=== PATIENT | male | born 1960 | race Caucasian/White ===

== ENCOUNTER 2023-09-27 13:34 | Outpatient (CLI) | payer MEDICARE, SELFPAY | END 2023-09-27 13:35 | disposition home or self-care (01) | PROVIDERS: Visit Provider Nurse Practitioner Family | DX: I10 Essential (primary) hypertension (principal); E55.9 Vitamin D deficiency, unspecified; R20.0 Anesthesia of skin; R20.2 Paresthesia of skin | CPT/HCPCS: 80053; 81001; 82306; 82607; 84443 ==

== ENCOUNTER 2023-09-28 13:53 | Emergency (ER) | payer MEDICARE, SELFPAY ==
[2023-09-28] VITALS (11 sets, daily range): BP systolic 166; BP diastolic 95; PULSE 56–75; RESP 18; O2SAT 96–100; BMI 21.5
--- NOTE | 2023-09-28 15:22 | CRLHL7_ITS ---
For Patients: As a result of the Century Cures Act, medical imaging exams and procedure reports are released immediately into your electronic medical record. You may view this report before your referring provider. If you have questions, please contact your health care provider. Indication: Diffuse numbness, prior traumatic brain injury Technique: Volumetric multidetector CT images of the head were obtained without the administration of low osmolar intravenous contrast. Comparison: None available Findings: There is no intra-axial or extra-axial fluid collection. There is no mass effect or midline shift. There is age-related cortical atrophy with mild sulcal widening and ex vacuo dilatation of the lateral ventricles. There are chronic small vessel disease changes in the subcortical and periventricular white matter without lost chavez-white differentiation. The orbits and their contents are grossly within normal limits. The bony calvarium is grossly intact. The paranasal sinuses are clear. The mastoid air cells are well aerated. Impression: Age-related and chronic small-vessel disease changes of the brain without acute intracranial abnormality. Please note that all CT scans at this facility use dose modulation, iterative reconstruction, and/or weight-based dosing when appropriate to reduce radiation dose to as low as reasonably achievable. Dictated by Aidan Joseph MD @ 09/28/2023 3:50:42 PM (Electronically Signed)
--- NOTE | 2023-09-28 15:49 | ED.GENADULT ---
HPI - General Adult General Date Seen: 09/28/23 Chief complaint: Neuro Symptoms/Altered Deficit Stated complaint: legs and arms tingly, headache, hypertension Time Seen by Provider: 09/28/23 14:26 Source: patient Mode of arrival: ambulatory Limitations: no limitations History of Present Illness HPI narrative: Patient is a 62-year-old male presenting to the emergency department for multiple complaints. The past few months he will have random episodes where he developed a headache and his extremities along with the side of his chest with developed pins and needle sensation. He was living in [facility] were he was seen for this last week but was recently moved back up to [place] with his son. He was seen yesterday to set up primary care at that time he was noted to be very hypertensive and was started on a blood pressure medication. Blood pressure is better today. He states he was having the symptoms yesterday 2 Na improved and then they started again at 02:00 today. He states since he has been in the emergency department the symptoms have been improving. States he feels much better right now. 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 He also punctured his lung at that time but did have a normal chest x-ray seen last week at his Emergency visit. He does have his COPD currently. Does not feel any more short of breath than normal. So also concerned about areas on his leg that he says he has been dealing with this for several years. Previously he was told these wounds for MRSA and were likely from peripheral vascular disease but he never had further intervention as that is when the COVID pandemic started and he did not see another doctor up until last year. denies fevers, chills, abdominal pain, diarrhea, constipation, dysuria, weakness, vision changes Related Data Home Medications ?Medication ?Instructions ?Recorded ?Confirmed hydroxyzine HCl 10 mg tablet 10 mg PO QHS 09/27/23 09/27/23 Previous Rx's ?Medication ?Instructions ?Recorded losartan 50 mg tablet (Cozaar) 50 mg PO QDAY #90 tabs 09/27/23 cholecalciferol (vitamin D3) 1,250 1,250 mcg PO QWEEK #12 caps 09/28/23 mcg (50,000 unit) capsule Allergies Allergy/AdvReac Type Severity Reaction Status Date / Time No Known Drug Allergies Allergy Verified 09/27/23 12:47 Review of Systems Status of ROS: Reports: 10 or more systems reviewed and unremarkable except as noted in History and below [facility] Surgical History (Updated 09/28/23 @ 11:01 by Trixie Lyle APRN, [employer] IN[employer]ER) History of colonoscopy ?Z98.890 - Other specified postprocedural states (ICD-10) Social History Narrative: The patient is . Disabled. One child. No formal exercise. Smoking 1 cigarette per day. No alcohol. No current drug use. Smoking Status: Current some day smoker How often do you have a drink containing alcohol: never AUDIT-C Alcohol total score: 0 Exam Narrative: Exam Narrative: Const: Well-nourished, Well-developed, in mild distress Eyes: PERRL, no conjunctival injection, and symmetrical lids HENT: Atraumatic external nose and ears. Moist mucous membranes. Neck: Symmetric, trachea midline, No thyromegaly. CVS: RRR, No murmurs or gallops. Peripheral pulses 2+ and equal in all extremities RESP: Unlabored respiratory effort. Clear to auscultation bilaterally. GI: Nontender/Nondistended, No rebound or guarding. MSK:Extremities w/o deformity, Normal Active ROM Skin: Warm, Dry. No rashes or lesions. Neuro: Normal Muscle tone, Cranial nerves 2-12 grossly intact, normal [id number], normal [id number], normal gait, normal strength 5/5 upper lower extremities bilaterally, normal sensation upper and lower extremities bilaterally, normal rapid alternating movements. Psych: Awake, Alert, & Oriented x3. Appropriate mood and affect. Const: Vital Signs, click to edit/add: Vital Signs - 24 hr 09/28/23 14:04 09/28/23 14:22 09/28/23 14:42 Pulse Rate 72 Pulse Rate [Left] 70 69 Respiratory Rate 18 18 Blood Pressure [Ri ght Upper Arm] 166/95 H 166/95 H Pulse Oximetry 99 99 99 Oxygen Delivery Me thod Room Air Room Air 09/28/23 14:45 09/28/23 15:00 09/28/23 15:15 Pulse Rate 75 69 58 L Pulse Rate [Left] Respiratory Rate Blood Pressure [Ri ght Upper Arm] Pulse Oximetry 99 96 99 Oxygen Delivery Me thod 09/28/23 15:39 09/28/23 15:45 09/28/23 16:00 Pulse Rate 71 71 56 L Pulse Rate [Left] Respiratory Rate Blood Pressure [Ri t Upper Arm] Pulse Oximetry 99 99 98 Oxygen Delivery Me thod 09/28/23 16:15 09/28/23 16:30 Pulse Rate 68 62 Pulse Rate [Left] Respiratory Rate Blood Pressure [Ri t Upper Arm] Pulse Oximetry 100 97 Oxygen Delivery Me thod Course Vital Signs Vital signs: Initial Vital Signs Pulse Rate 70 09/28/23 14:04 Pulse Rhythm Regular 09/28/23 14:04 Respiratory Rate 18 09/28/23 14:04 Blood Pressure 166/95 H 09/28/23 14:04 Blood Pressure Mean 118 H 09/28/23 14:04 Blood Pressure Position Supine 09/28/23 14:04 Pulse Oximetry 99 09/28/23 14:04 Oxygen Delivery Method Room Air 09/28/23 14:04 Vital Signs Pulse Rate 70 09/28/23 14:04 Respiratory Rate 18 09/28/23 14:04 Blood Pressure 166/95 H 09/28/23 14:04 Pulse Oximetry 99 09/28/23 14:04 Oxygen Delivery Method Room Air 09/28/23 14:04 Pulse Rate 62 09/28/23 16:30 Respiratory Rate 18 09/28/23 14:22 Blood Pressure 166/95 H 09/28/23 14:22 Pulse Oximetry 97 09/28/23 16:30 Oxygen Delivery Method Room Air 09/28/23 14:22 Medications Administered Medications: Discontinued Medications Generic Name Dose Route Start Last Admin Trade Name Freq PRN Reason Stop Dose Admin Diphenhydramine HCl 25 mg 09/28/23 15:22 09/28/23 16:00 Diphenhydramine 50 Mg/Ml Inj IVP 09/28/23 15:23 25 mg ONCE ONE Administration Lactated Ringer's 1,000 mls @ 1,000 mls/hr 09/28/23 15:22 09/28/23 15:58 Lactated Ringers 1000 Ml IV 09/28/23 16:21 1,000 mls/hr .Q1H ONE Administration Metoclopramide HCl 10 mg 09/28/23 15:22 08/20/24 16:04 Metoclopramide Hcl 5 Mg/Ml Inj IVP 09/28/23 15:23 10 mg ONCE ONE Administration Medical Decision Making MDM Narrative Medical decision making narrative: Patient is a 62-year-old male presenting to the emergency department for headache and diffuse extremity numbness. The symptoms have been on and off for the past 2 months. This started again this morning at 02:00 he last had the yesterday. At this time symptoms do not seem consistent with an acute stroke. One do a CT scan of the head though to rule out any intracranial abnormalities. I do not believe an MRI is indicated at this time as I am not sure if this is best with or without contrast in if he would need imaging of his entire spine in this may be a better decision to be made by Neurology on an outpatient setting. We do CBC, CMP, EKG, troponin, magnesium. For his headache will give him a migraine cocktail. Lab work all returned showing no concerning abnormalities. Do not believe repeat troponin is necessary as symptoms have been on for several months and his chest discomfort see scribe's more the pins and needles sensation rather than painful. Head CT reviewed by myself and radiologist shows no acute abnormalities. Symptoms are improving at this time and I will discharge him home with Toradol to take as needed for his headache along with nausea medicine. He is agreeable to this plan. I informed him he needs close follow-up with his primary care provider. Lab Data Labs: Lab Results 09/28/23 Range/Units 16:00 WBC 8.46 (4.50-11.00) K/uL RBC 4.87 (4.30-5.90) m/uL Hgb 15.2 (13.5-17.5) gm/dL Hct 45.1 (37.0-53.0) % MCV 93 (80-100) fL MCH 31 (26-34) pg MCHC 34 (32-36) gm/dL RDW Coeff of Carl 12.8 (11.5-15.5) % Plt Count 297 (140-440) K/uL Neut % (Auto) 74.3 H (42.0-72.0) % Lymph % (Auto) 13.6 L (20-44) % Nelson % (Auto) 7.9 (0.0-11.0) % Eos % (Auto) 3.3 (0.0-7.0) % Baso % (Auto) 0.7 (0.0-3.0) % Neut # (Auto) 6.30 (1.7-7.0) K/uL Lymph # (Auto) 1.20 (0.90-2.90) K/uL Nelson # (Auto) 0.70 (0.00-0.90) K/UL Eos # (Auto) 0.28 (0.00-0.50) K/uL Baso # (Auto) 0.06 (0.00-0.30) K/uL Abs Immat Gran (auto) 0.02 (0.00-0.30) K/uL Imm/Tot Granulo (auto) 0.2 % Sodium 136 (135-149) mmol/L Potassium 3.5 L (3.6-5.1) mmol/L Chloride 104 (96-114) mmol/L Carbon Dioxide 26 (20-32) mmol/L Anion Gap 6 L (7-15) mEq/L BUN 17 (7-30) mg/dL Creatinine 0.8 (0.5-1.5) mg/dL Estimated Creat Clear 71.82 Estimated GFR 99 ml/min Glucose 92 (60-115) mg/dL Calcium 9.0 (8.4-10.6) mg/dL Magnesium 2.1 (1.5-2.6) mg/dL Troponin I < 0.01 L (0.01-0.04) ng/mL Imaging Data CT scan - head: Attestation: I have reviewed the pertinent imaging results. Radiologist's impression: Age-related and chronic small-vessel disease changes of the brain without acute intracranial abnormality. Please note that all CT scans at this facility use dose modulation, iterative reconstruction, and/or weight-based dosing when appropriate to reduce radiation dose to as low as reasonably achievable. Dictated by Aidan Joseph MD @ 09/28/2023 3:50:42 PM ECG Data Attestation: I personally reviewed and interpreted this ECG as follows: Prior ECG tracings: available for review Interpretation: Sinus rhythm with a rate 66 be per minute, normal intervals, normal axis, no ST or T-wave abnormalities. Appears similar to previous EKG on file Discharge Plan Discharge Clinical Impression: Headache Qualifiers: Headache type: unspecified Headache chronicity pattern: episodic headache Intractability: not intractable Qualified Code(s): R51.9 - Headache, unspecified Patient Disposition: Home, Self-Care Condition: Improved Instructions: Acute Headache (DC) Additional Instructions: Follow-up with primary care provider about his symptoms. The next appointment asked give they think Neurology and MRIs may be beneficial due to your numbness. Return to emergency department for new or worsening symptoms. Take the Toradol as needed for headache but if he do take Toradol did not take ibuprofen or other NSAIDs with that as they are the same class of drugs. You can use Tylenol though. Use Zofran as needed for nausea. Prescriptions: No Action hydroxyzine HCl 10 mg tablet 10 mg PO QHS losartan [Cozaar] 50 mg tablet 50 mg PO QDAY Qty: 90 0RF Rx Instructions: 25 mg daily x2 weeks and then increase to 50 mg daily cholecalciferol (vitamin D3) 1,250 mcg (50,000 unit) capsule 1,250 mcg PO QWEEK Qty: 12 0RF Follow Up/Referrals: Generic,Amb Provider [Primary Care Provider] - Stand Alone Forms: [employer] Info Instructions
[2023-09-28] MEDS: LACTATED RINGERS 1000 ML 1,000 ML IV (15:58)
[2023-09-28] MEDS: diphenhydrAMINE 50 MG/ML inj 25 MG IVP (16:00)
[2023-09-28 16:04] LABS: Basophils Absolute Auto 0.06 K/uL (0.00-0.30); Basophils Percent Auto 0.7 % (0.0-3.0); Eosinophils Absolute Auto 0.28 K/uL (0.00-0.50); Eosinophils Percent Auto 3.3 % (0.0-7.0); Hematocrit 45.1 % (37.0-53.0); Hemoglobin* 15.2 gm/dL (13.5-17.5); Immature Granulocytes Abs Auto 0.02 K/uL (0.00-0.30); Immature Granulocytes Pct Auto 0.2 %; Lymphocytes Percent Auto 13.6 % (20-44); Mean Corpuscular HGB Conc 34 gm/dL (32-36); Mean Corpuscular Hemoglobin 31 pg (26-34); Mean Corpuscular Volume 93 fL (80-100); Monocytes Percent Auto 7.9 % (0.0-11.0); Neutrophils Percent Auto 74.3 % (42.0-72.0); Platelet Count* 297 K/uL (140-440); RDW Coefficient of Variation % 12.8 % (11.5-15.5); Red Blood Count 4.87 m/uL (4.30-5.90); White Blood Count* 8.46 K/uL (4.50-11.00)
[2023-09-28] MEDS: METOCLOPRAMIDE HCL 5 MG/ML INJ 10 MG IVP (16:04)
[2023-09-28 16:11] LABS: Slide Review Reflex No
[2023-09-28 16:19] LABS: Chloride* 104 mmol/L (96-114); Potassium* 3.5 mmol/L (3.6-5.1); Sodium* 136 mmol/L (135-149)
[2023-09-28 16:22] LABS: Anion Gap 6 mEq/L (7-15); Blood Urea Nitrogen* 17 mg/dL (7-30); Carbon Dioxide* 26 mmol/L (20-32); Creatinine* 0.8 mg/dL (0.5-1.5); Est. Creatinine Clearance* 71.82; Estimated Glomerular Filt Rate 99 ml/min; Glucose* 92 mg/dL (60-115)
[2023-09-28 16:23] LABS: Magnesium* 2.1 mg/dL (1.5-2.6)
[2023-09-28 16:35] LABS: Troponin I* < 0.01 ng/mL (0.01-0.04)
== END 2023-09-28 18:05 | disposition home or self-care (01) ==
PROVIDERS: Emergency Provider Student in an Organized Health Care Education/Training Program
DX: R51.9 Headache, unspecified (principal)
CPT/HCPCS: 36415; 70450; 80048; 83735; 84484; 85025; 93005; 96361; 96374; 96375; 99283; 99284; 99285; J1200; J2765; J7120

== ENCOUNTER 2023-10-15 12:35 | Outpatient (CLI) | payer MEDICARE, SELFPAY | END 2023-10-15 12:36 | disposition home or self-care (01) | PROVIDERS: PCP Nurse Practitioner Family; Visit Provider Nurse Practitioner Family | DX: I10 Essential (primary) hypertension (principal) | CPT/HCPCS: 93306 ==

== ENCOUNTER 2025-02-06 18:15 | Outpatient (CLI) | payer MEDICARE, SELFPAY | END 2025-02-06 18:16 | disposition home or self-care (01) | PROVIDERS: PCP Nurse Practitioner Family; Visit Provider Nurse Practitioner Family | DX: I10 Essential (primary) hypertension (principal); E55.9 Vitamin D deficiency, unspecified; R21 Rash and other nonspecific skin eruption | CPT/HCPCS: 80053; 80061; 82306; 85025 ==